=== PATIENT | female | born 1950 | race Two or more races ===

== ENCOUNTER → 2016-12-04 | Outpatient (CLI) | payer OTHER, MEDICAID ==
[~2016-12-04] MED LIST: AMIO100T4 PO; ASPI-1061 PO; ATOR40TA28 PO; DILT60TA36 PO; LORA0.5T83 PO; LOSA50TA2 PO; METO-323 PO; PANT40TA PO; PHEN100C23 PO; SENN-30 PO
== END | disposition home or self-care (01) ==
LOC: RADPV 14:41
PROVIDERS: ATTEND Legal Medicine
DX: M81.0 Age-related osteoporosis without current pathological fracture (principal); M16.0 Bilateral primary osteoarthritis of hip
CPT/HCPCS: 77080